=== PATIENT | male | born 1960 | race Two or more races ===

== ENCOUNTER 2022-05-07 11:01 | Emergency (ER) | payer OTHER ==
[~2022-05-07] VITALS: Ht 175.3 cm; Wt 104.3 kg
[2022-05-07] MEDS ORDERED: ZESTRIL5 MG (11:15)
[2022-05-07] MEDS ORDERED: NASAL MIST126 ML (11:15)
== END 2022-05-08 05:42 | disposition left against medical advice (07) ==
LOC: ER 11:01
DX: R04.0 Epistaxis (principal); Z20.822 Contact with and (suspected) exposure to COVID-19

== ENCOUNTER 2023-05-04 05:05 | Day surgery (SDC) | payer OTHER ==
[2023-04-28 11:16] LABS: URINE APPEARANCE Clear; URINE BILIRRUBIN Negative (NEGATIVE); URINE BLOOD Negative; URINE COLOR Yellow; URINE GLUCOSE Negative (NEGATIVE); URINE LEUKOCYTE Negative; URINE NITRATE Negative; URINE PROTEIN Negative (NEGATIVE); URINE UROBILINOGEN 0.2 E.U./dl
[2023-04-28 11:17] LABS: HEMATOCRIT 44.4 % (39.0-48.0); HEMOGLOBIN 15.3 g/dL (13-16.00); MEAN CELL VOLUME 91.8 fL (80.0-100.00); MEAN CORPUSCULAR HEMOGLOBIN 31.7 pg (27.00-32.0); MEAN CORPUSCULAR HGB CONC 34.5 g/dl (32.0-36.0); PLATELET COUNT 228 K/uL (150-450); RED BLOOD COUNT 4.84 M/uL (4.00-6.00); RED CELL DISTRIBUTION WIDTH 13.1 % (11.5-14.5)
[2023-04-28 11:22] LABS: URINE BACTERIA 8.8 uL (0.0-1933); URINE RBC 2.4 uL (0.0-20.8); URINE WBC 2.1 uL (0.0-23.2)
[2023-04-28 11:30] LABS: URINE EPITHELIAL CELLS 1.2 uL (0.0-38.8)
[2023-04-28 11:42] LABS: CALCIUM 9.6 mg/dL (8.5-10.1); CREATININE SERUM 1.14 mg/dL (0.70-1.30); GFR 65.09; POTASSIUM 4.56 mEq/L (3.5-5.1)
[2023-04-28 11:44] LABS: INR 1.16
[~2023-05-04] VITALS: Ht 175.3 cm; Wt 112.0 kg
[~2023-05-04 05:05] MED LIST: ATORVASTATIN CA80 MG PO; CARVEDILOL6.25 M1 PO; HYDROCHLOROTHIA25 MG PO; LOSARTAN POTAS100 MG PO; NASAL MIST126 ML; ZESTRIL5 MG
[2023-05-04] MEDS ORDERED: KETO10TA2 PO (09:23)
[2023-05-04] MEDS ORDERED: MIRALAX17 GM PO (09:23)
[2023-05-04] MEDS ORDERED: TYLENOL ARTHRI650 MG PO (09:23)
[2023-05-04] MEDS ORDERED: TRAMADOL HCL50 MG PO (09:23)
== END 2023-05-04 11:15 | disposition home or self-care (01) ==
LOC: CIR.AMB 05:05
PROVIDERS: ATTEND Surgery
DX: K42.0 Umbilical hernia with obstruction, without gangrene (principal); I10 Essential (primary) hypertension
CPT/HCPCS: 49594; C1781